=== PATIENT | male | born 1955 | race Caucasian/White ===

== ENCOUNTER 2023-12-27 16:00 | Outpatient (CLI) | payer BC | END 2023-12-27 16:01 | disposition home or self-care (01) | LOC: CSHSLEEP 16:00 | PROVIDERS: ATTEND Family Medicine | DX: G47.33 Obstructive sleep apnea (adult) (pediatric) (principal); G47.61 Periodic limb movement disorder | CPT/HCPCS: 95811 ==

== ENCOUNTER 2024-02-11 13:07 | Outpatient (CLI) | payer BC ==
[2024-02-11 13:55] LABS: Hematocrit 45.6 % (38.8-50.0); Hemoglobin 14.9 g/dL (13.5-17.5); Mean Corpuscular HGB CONC 32.7 g/dL (32.0-36.0); Mean Corpuscular Hemoglobin 28.3 pg (27.0-33.0); Mean Corpuscular Volume 86.5 fL (81.2-95.1); Mean Platelet Volume 9.8 fL (7.4-10.4); Platelet Count 380 10x3/uL (150-450); RBC Distribution Width 13.2 % (11.5-14.5); Red Blood Cell (RBC) Count 5.27 10x6/uL (4.32-5.72); White Blood Cell (WBC) Count 13.1 10x3/uL (3.5-10.5)
[2024-02-11 14:20] LABS: Anion Gap 17 mmol/L (10-20); BUN (Urea Nitrogen) 24 mg/dL (8.4-25.7); Calc. Creatinine Clearance 0 mL/min (70-130); Calcium 9.7 mg/dL (7.8-10.44); Carbon Dioxide 26 mmol/L (23-31); Chloride 100 mmol/L (98-107); Estimated GFR 60; Glucose 100 mg/dL (80-115); Potassium 4.2 mmol/L (3.5-5.1); Sodium 139 mmol/L (136-145)
== END 2024-02-11 13:08 | disposition home or self-care (01) ==
LOC: CSHLAB 13:07
PROVIDERS: ATTEND Specialist
DX: Z01.812 Encounter for preprocedural laboratory examination (principal); H72.91 Unspecified perforation of tympanic membrane, right ear
CPT/HCPCS: 80048; 85027

== ENCOUNTER 2024-02-13 10:03 | Day surgery (SDC) | payer BC ==
[2024-02-11 13:49] VITALS: BMI 37.3
[2024-02-13] MEDS ORDERED: Ciprofloxacin 0.3% Ophth Soln 2.5 ml Bottle ONE (11:27)
[2024-02-13] MEDS ORDERED: Lidocaine 1% w/Epinephrine 1:200K 30 ML VIAL ONE (11:27)
[2024-02-13] MEDS ORDERED: EPINEPHrine 1 MG/ML VIAL ONE (11:27)
[2024-02-13] MEDS ORDERED: Mupirocin 2% Ointment 22 GM Tube ONE (11:27)
[2024-02-13] MEDS ORDERED: Rocuronium Bromide 10 MG/ML (10ML VIAL) ONE (12:59)
[2024-02-13] MEDS ORDERED: fentaNYL 50 mcg/mL 1 mL Vial ONE ×3 (12:59→15:59)
[2024-02-13] MEDS ORDERED: Dexamethasone 4 mg/ml Vial ONE (12:59)
[2024-02-13] MEDS ORDERED: Ondansetron PF 4 MG/2 ML Vial ONE (12:59)
[2024-02-13] MEDS ORDERED: PROPOFOL 20 ML ONE (12:59)
[2024-02-13] MEDS ORDERED: Lidocaine 1% PF 5 ML VIAL ONE (12:59)
[2024-02-13] MEDS ORDERED: ePHEDrine Sulfate 50 MG/10 ML VIAL ONE (13:51)
[2024-02-13] MEDS ORDERED: SUGAMMADEX SODIUM 200 MG/2 ML VIAL ONE (14:41)
[2024-02-13] MEDS ORDERED: HYDROcodone/Acetaminophen 5/325 mg Tablet ONE ×2 (16:24→16:52)
== END 2024-02-13 17:45 | disposition home or self-care (01) ==
LOC: CSHSDC 10:03
PROVIDERS: ATTEND Specialist
PROC: 09N Ear, Nose, Sinus, Release (ICD-10-PCS; principal; 2024-02-13)
PROC: 09U777Z Supplement Right Tympanic Membrane with Autologous Tissue Substitute, Via Natural or Artificial Opening (ICD-10-PCS; principal; 2024-02-13)
DX: S09.21XA Traumatic rupture of right ear drum, initial encounter (principal); H74.11 Adhesive right middle ear disease; H90.6 Mixed conductive and sensorineural hearing loss, bilateral; I10 Essential (primary) hypertension; I25.10 Atherosclerotic heart disease of native coronary artery without angina pectoris; E11.9 Type 2 diabetes mellitus without complications; E78.00 Pure hypercholesterolemia, unspecified; M10.9 Gout, unspecified; G47.33 Obstructive sleep apnea (adult) (pediatric); J45.909 Unspecified asthma, uncomplicated; Z87.442 Personal history of urinary calculi; Z95.1 Presence of aortocoronary bypass graft; Z79.82 Long term (current) use of aspirin; Z79.899 Other long term (current) drug therapy; X58.XXXA Exposure to other specified factors, initial encounter
CPT/HCPCS: J0171; J1100; J2405; J2704; J3010